=== PATIENT | female | born 1970 | race Caucasian/White ===

== ENCOUNTER 2021-08-01 23:57 | Emergency (ER) | payer OTHER ==
[~2021-08-01] VITALS: Ht 157.5 cm; Wt 99.8 kg
[2021-08-02] MEDS ORDERED: HYDROCODONE/APAP 10MG-325MG TAB PO ONE (00:15)
[2021-08-02] MEDS ORDERED: HYDROCODONE/APAP 10MG-325MG TAB ONE (00:25)
== END 2021-08-02 01:17 | disposition home or self-care (01) ==
LOC: ER 08-02 00:03
DX: S63.502A Unspecified sprain of left wrist, initial encounter (principal); W01.0XXA Fall on same level from slipping, tripping and stumbling without subsequent striking against object, initial encounter; Y93.01 Activity, walking, marching and hiking; Y92.89 Other specified places as the place of occurrence of the external cause
CPT/HCPCS: 99283

== ENCOUNTER 2024-07-18 10:18 | Emergency (ER) | payer BC, OTHER ==
[~2024-07-18] VITALS: Ht 157.5 cm; Wt 99.8 kg
[2024-07-18] MEDS: IBUPROFEN 600 MG TAB PO STA (10:55)
[2024-07-18] MEDS: ONDANSETRON HCL INJ 2MG/ML 2ML 2 MG/ML VIAL IV STA (10:55)
[2024-07-18] MEDS: SODIUM CHLORIDE 0.9% 1000ML 1,000 ML IV ONE (10:55)
[2024-07-18 11:13] LABS: BASOPHILS % 0.4 % (0.0-1.0); HEMATOCRIT 40.5 % (34.2-44.1); HEMOGLOBIN 13.5 g/dL (12.0-16.0); LYMPHOCYTES # (AUTO) 0.8 (1.0-3.2); MEAN CORPUSCULAR HEMOGLOBIN 28.2 pg (28-32); MEAN CORPUSCULAR HGB CONC 33.3 g/dL (31-35); MEAN CORPUSCULAR VOLUME 84.6 fL (81-99); MONOCYTES # (AUTO) 0.1 (0.2-0.8); MONOCYTES % 5.3 % (4.4-11.3); NEUTROPHILS # (AUTO) 1.3 (2.1-6.9); NEUTROPHILS % 56.4 % (38.7-80.0); PLATELET COUNT 137 x10e3/uL (140-360); RED BLOOD COUNT 4.79 x10e6/uL (3.6-5.1); RED CELL DISTRIBUTION WIDTH 14.3 % (11.7-14.4); WHITE BLOOD COUNT 2.27 x10e3/uL (4.8-10.8)
[2024-07-18 11:36] LABS: ALBUMIN 3.2 g/dL (3.5-5.0); ALBUMIN/GLOBULIN RATIO 0.8 (0.8-2.0); ANION GAP 14.6 mmol/L (8-16); BILIRUBIN,TOTAL 0.5 mg/dL (0.2-1.2); CALCIUM 8.4 mg/dL (8.4-10.2); CREATININE, SERUM 0.85 mg/dL (0.57-1.11); POTASSIUM 3.6 mmol/L (3.5-5.1); TOTAL PROTEIN 7.3 g/dL (6.5-8.1)
[2024-07-18 11:43] LABS: CORONAVIRUS COVID-19 AG NEGATIVE (NEGATIVE); INFLUENZA A AG NEGATIVE (NEGATIVE); INFLUENZA B AG NEGATIVE (NEGATIVE)
[2024-07-18 12:04] VITALS: PULSE 91; RESP 18; TEMP 99; O2SAT 98
[2024-07-18 12:20] LABS: BILIRUBIN,URINE SMALL (NEGATIVE); CLARITY,URINE CLEAR (CLEAR); COLOR,URINE YELLOW (YELLOW); GLUCOSE, URINE NEGATIVE (NEGATIVE); KETONES,URINE 2+ (NEGATIVE); LEUKOCYTE ESTERASE ,URINE NEGATIVE (NEGATIVE); NITRITE,URINE NEGATIVE (NEGATIVE); PH,URINE 6 (5 - 7); PROTEIN,URINE DIPSTICK 2+ (NEGATIVE); URINE UROBILINOGEN 1 mg/dL (0.2 - 1)
[2024-07-18 12:23] LABS: BAND NEUTROPHILS % (MANUAL) 4 %; LYMPHOCYTES % (MANUAL) 41 % (19-48); MONOCYTES % (MANUAL) 4 % (3.4-9.0); MYELOCYTES % (MANUAL) 4 % (0-0); NEUTROPHILS % (MANUAL) 47 % (40-74); PLATELET ESTIMATE SLIGHTLY DECREASED
[2024-07-18 12:24] LABS: PLATELET MORPHOLOGY COMMENT NORMAL; RBC MORPHOLOGY COMMENT NORMAL
[2024-07-18 12:48] LABS: BACTERIA,URINE FEW /HPF; EPITHELIAL CELLS,URINE FEW /LPF; RBC,URINE 0-5 /HPF (0-5); RENAL EPITHELIAL CELLS,URINE FEW; WBC,URINE (MAN) 0-5 /HPF (0-5)
[2024-07-18] MEDS ORDERED: ONDANSETRON ODT4 MG PO (12:53)
== END 2024-07-18 13:13 | disposition home or self-care (01) ==
LOC: ER 10:32
DX: R50.9 Fever, unspecified (principal); B34.9 Viral infection, unspecified; R11.2 Nausea with vomiting, unspecified; R05.9 Cough, unspecified; R19.7 Diarrhea, unspecified; R51.9 Headache, unspecified; Z11.52 Encounter for screening for COVID-19
CPT/HCPCS: 36415; 71046; 80053; 81001; 83605; 83690; 85025; 87040; 87086; 87428; 99284; J2405; J7030